=== PATIENT | female | born 1945 | race Caucasian/White ===

== ENCOUNTER 2016-09-24 13:43 | Emergency (ER) | payer MEDICARE, BC ==
[~2016-09-24] VITALS: Ht 160 cm; Wt 75.7 kg
[2016-09-24] MEDS ORDERED: ONDANSETRON PF 4 MG/2 ML VIAL. IV ONE (14:15)
[2016-09-24] MEDS ORDERED: IV NORMAL SALINE 500ML BAG 500 ML IV ONE ×2 (14:15→15:00)
[2016-09-24 14:25] LABS: BASO % 1 % (0-3); EOS % 0 % (0-3); HEMATOCRIT 41.8 % (36.0-47.0); LYMPH # 1.2 x10^3/uL (1.0-4.8); LYMPH % 32 % (24-48); MEAN CORPUSCULAR HEMOGLOBIN 29 pg (25-35); MEAN CORPUSCULAR HGB CONC 33 g/dL (31-37); MEAN CORPUSCULAR VOLUME 85 fL (79-100); MONO % 23 % (0-9); NEUT % 43 % (31-73); PLATELET COUNT 251 x10^3/uL (140-400); RED CELL DISTRIBUTION WIDTH 15.1 % (11.5-14.5); WHITE BLOOD COUNT 3.6 x10^3/uL (4.0-11.0)
[2016-09-24 14:34] LABS: CALCIUM 8.8 mg/dL (8.5-10.1); CREATININE 1.2 mg/dL (0.6-1.0); GFR 44.4; POTASSIUM 3.5 mmol/L (3.5-5.1)
[2016-09-24 15:26] LABS: OBC FLU VALID
[2016-09-24 15:41] LABS: BILIRUBIN,URINE SMALL (NEG); GLUCOSE,URINE NEGATIVE (NEG); NITRITE,URINE NEGATIVE (NEG); PROTEIN,URINE 30 mg/dL (NEG-TRACE); UROBILINOGEN,URINE 0.2 mg/dL (0.2 mg/dL)
[2016-09-24 16:12] LABS: RBC,URINE RARE /HPF (0-2)
[2016-09-24 16:14] LABS: BACTERIA,URINE FEW /HPF (0-FEW)
[2016-09-24 16:15] LABS: SQUAMOUS EPITHELIAL CELL,UR OCC /LPF
[2016-09-24] MEDS ORDERED: ONDA4TAB7 PO (16:26)
--- NOTE | 2016-09-24 16:26 | PHYS DOC ---
Past Medical History Past Medical History: Hypertension Past Surgical History: Cholecystectomy, Hysterectomy Additional Past Surgical Histo: Bladder Sling Alcohol Use: None Drug Use: None Adult General Chief Complaint Chief Complaint: NAUSEA/VOMITING/DIARRHA HPI HPI This 71-year-old female who states she's been having significant nausea and vomiting for the last several days. She states her symptoms were preceded by sinus type congestion several days ago and states she was prescribed a course of Augmentin and a decongestant and then her nausea vomiting develops several days later. She states she has not been able to eat or drink really today. States she has history of hypertension but denies any other significant health history. She does also report subjective body aches and no other symptoms. She denies any chest pain or shortness of breath. Review of Systems Review of Systems Constitutional: Denies fever or chills [] Eyes: Denies change in visual acuity, redness, or eye pain [] HENT: Denies nasal congestion or sore throat [] Respiratory: Denies cough or shortness of breath [] Cardiovascular: No additional information not addressed in HPI [] GI: Denies abdominal pain, has nausea, has vomiting, bloody stools or diarrhea [ ] : Denies dysuria or hematuria [] Musculoskeletal: Denies back pain or joint pain [] Integument: Denies rash or skin lesions [] Neurologic: Denies headache, focal weakness or sensory changes [] Endocrine: Denies polyuria or polydipsia [] Current Medications Current Medications Current Medications Medications (Trade) Dose Ordered Sig/Richelle Start Time Stop Time Status Last Admin Dose Admin Ondansetron HCl 4 mg 4 mg 1X ONCE 09/24/16 14:15 09/24/16 14:25 DC 09/24/16 14:29 4 MG Sodium Chloride (Iv Sodium Chloride 0.9% 500ml Bag) 500 ml @ 500 mls/hr 1X ONCE 09/24/16 15:00 09/24/16 15:59 DC 09/24/16 14:57 500 MLS/HR Allergies Allergies Allergies Coded Allergies Type Severity Reaction Last Updated Verified codeine Allergy Intermediate 09/24/16 Yes Physical Exam Physical Exam Constitutional: Well developed, well nourished, no acute distress, non-toxic appearance. [] HENT: Normocephalic, atraumatic, bilateral external ears normal, oropharynx moist, no oral exudates, nose normal. [] Eyes: PERRLA, EOMI, conjunctiva normal, no discharge. [] Neck: Normal range of motion, no tenderness, supple, no stridor. [] Cardiovascular:Heart rate regular rhythm, no murmur [] Lungs & Thorax: Bilateral breath sounds clear to auscultation [] Abdomen: Bowel sounds normal, soft, no tenderness, no masses, no pulsatile masses. [] Skin: Warm, dry, no erythema, no rash. [] Back: No tenderness, no CVA tenderness. [] Extremities: No tenderness, no cyanosis, no clubbing, ROM intact, no edema. [] Neurologic: Alert and oriented X 3, normal motor function, normal sensory function, no focal deficits noted. [] Psychologic: Affect normal, judgement normal, mood normal. [] Current Patient Data Vital Signs Vital Signs Date Time Temp Pulse Resp B/P Pulse Ox O2 Delivery O2 Flow Rate FiO2 09/24/16 16:41 50 10 116/58 95 Room Air 09/24/16 14:00 98.1 98.1 Lab Values Laboratory Tests Test 09/24/16 14:10 09/24/16 14:50 09/24/16 15:25 White Blood Count 3.6x10^3/uL (4.0-11.0) L Red Blood Count 4.90x10^6/uL (3.50-5.40) Hemoglobin 14.0g/dL (12.0-15.5) Hematocrit 41.8% (36.0-47.0) Mean Corpuscular Volume 85fL (79-100) Mean Corpuscular Hemoglobin 29pg (25-35) Mean Corpuscular Hemoglobin Concent 33g/dL (31-37) Red Cell Distribution Width 15.1% (11.5-14.5) H Platelet Count 251x10^3/uL (140-400) Neutrophils (%) (Auto) 43% (31-73) Lymphocytes (%) (Auto) 32% (24-48) Monocytes (%) (Auto) 23% (0-9) H Eosinophils (%) (Auto) 0% (0-3) Basophils (%) (Auto) 1% (0-3) Neutrophils # (Auto) 1.6x10^3uL (1.8-7.7) L Lymphocytes # (Auto) 1.2x10^3/uL (1.0-4.8) Monocytes # (Auto) 0.8x10^3/uL (0.0-1.1) Eosinophils # (Auto) 0.0x10^3/uL (0.0-0.7) Basophils # (Auto) 0.0x10^3/uL (0.0-0.2) Sodium Level 140mmol/L (136-145) Potassium Level 3.5mmol/L (3.5-5.1) Chloride Level 103mmol/L (98-107) Carbon Dioxide Level 25mmol/L (21-32) Anion Gap 12 (6-14) Blood Urea Nitrogen 18mg/dL (7-20) Creatinine 1.2mg/dL (0.6-1.0) H Estimated GFR (Cockcroft-Gault) 44.4 Glucose Level 108mg/dL (70-99) H Calcium Level 8.8mg/dL (8.5-10.1) Influenza Type A Antigen Negative (NEGATIVE) Influenza Type B Antigen Positive (NEGATIVE) Urine Collection Type Unknown Urine Color [place] Urine Clarity Cloudy Urine pH 5.0 Urine Specific [place] >=1.030 Urine Protein 30mg/dL (NEG-TRACE) Urine Glucose (UA) Negativemg/dL (NEG) Urine Ketones (Stick) Tracemg/dL (NEG) Urine Blood Moderate (NEG) Urine Nitrite Negative (NEG) Urine Bilirubin Small (NEG) Urine Urobilinogen Dipstick 0.2mg/dL (0.2 mg/dL) Urine Leukocyte Esterase Moderate (NEG) Urine RBC Rare/HPF (0-2) Urine WBC 1-4/HPF (0-4) Urine Squamous Epithelial Cells Occ/LPF Urine Amorphous Sediment Present/HPF Urine Bacteria Few/HPF (0-FEW) Urine Hyaline Casts Moderate/HPF Urine Mucus Slight/LPF Laboratory Tests 09/24/16 14:10 Laboratory Tests 09/24/16 14:10 EKG EKG [] Radiology/Procedures Radiology/Procedures [] Course & Med Decision Making Course & Med Decision Making Pertinent Labs and Imaging studies reviewed. (See chart for details) 71-year-old female was given a liter of fluid and Zofran and had laboratory workup that was unrevealing. Her influenza swabs were positive for influenza type B but she is out of the window to treat. I will be providing her a prescription for Zofran and instructing her to take Motrin for her body aches and to continue drink plenty of fluids at home and follow closely with her primary care doctor. I gave her strict instruction to return if she is unable to keep fluids down or if she feels extremely weak or lightheaded. She was successfully ambulated around the department without difficulty and felt comfortable going home after a liter of fluid. She tolerated oral fluids prior to discharge. I counseled her to discontinue her antibiotic use at this time as this could be a contributing factor to her nausea and vomiting. Dragon Disclaimer Dragon Disclaimer This electronic medical record was generated, in whole or in part, using a voice recognition dictation system. Departure Departure Impression: Primary Impression: Influenza B Additional Impression: Nausea & vomiting Disposition: 01 HOME, SELF-CARE Admitting Physician: Other Condition: STABLE Referrals: GABBY WELCH MD (PCP) Patient Instructions: Influenza, Adult Additional Instructions: Please take your medication as prescribed. Take your zofran as needed for any nausea. Continue to stay well hydrated. Return to the ER if you develop any worsening of your symptoms. Scripts Ondansetron Hcl (Zofran)4 Mg Tablet4 Mg PO BID PRN NAUSEA/VOMITING #10 TAB Prov:VALERIE PERKINS DO 09/24/16 Problem Qualifiers VALERIE PERKINS DO Sep 24, 2016 16:26
[2016-09-24 16:41] VITALS: BP 116/58
== END 2016-09-24 16:44 | disposition home or self-care (01) ==
LOC: ER 13:43
DX: J10.1 Influenza due to other identified influenza virus with other respiratory manifestations (principal); R11.2 Nausea with vomiting, unspecified; I10 Essential (primary) hypertension; Z88.5 Allergy status to narcotic agent
CPT/HCPCS: 36415; 80048; 81001; 85027; 87804; 96361; 96374; 99285; J2405; J7040

== ENCOUNTER → 2017-05-06 | Outpatient (CLI) | payer MEDICARE, BC ==
[~2017-05-06] MED LIST: ONDA4TAB7 PO
--- NOTE | 2017-05-06 10:53 | KCIC ---
DATE: 05/06/2017 EXAM: MAMMO KADI SCREENING BILATERAL HISTORY: Screening COMPARISON: One year earlier This study was interpreted with the benefit of Computerized Aided Detection (CAD). FINDINGS: Breast Density: SCATTERED The breast parenchyma shows scattered fibroglandular densities. Breast parenchyma level B. There has not been a significant change compared to the previous exam IMPRESSION: Benign findings BI-RADS CATEGORY: 2 BENIGN FINDING(S) RECOMMENDED FOLLOW-UP: 12M 12 MONTH FOLLOW-UP PQRS compliance statement: Patient information was entered into a reminder system with a target due date 05/06/2018 for the next mammogram. Mammography is a sensitive method for finding small breast cancers, but it does not detect them all and is not a substitute for careful clinical examination. A negative mammogram does not negate a clinically suspicious finding and should not result in delay in biopsying a clinically suspicious abnormality. "Our facility is accredited by the [employer] Mammography Program."
== END | disposition home or self-care (01) ==
LOC: KCIC MAMMO 08:43
PROVIDERS: ATTEND Internal Medicine
DX: Z12.31 Encounter for screening mammogram for malignant neoplasm of breast (principal)
CPT/HCPCS: 77063; G0202; 77067

== ENCOUNTER → 2018-05-08 | Outpatient (CLI) | payer MEDICARE, BC ==
--- NOTE | 2018-05-09 13:05 | KCIC ---
3d digital tomography Bilateral History: Routine screening Technique: Bilateral 3d digital tomographic views were obtained with [employer] and reviewed on a [employer]er workstation. In addition, CAD - computer aided detection was utilized. Comparison: May 05, 2016. Findings: Breast Tissue Density B : The breast tissue is composed of mixed fatty and fibroglandular tissue. There are no suspicious masses, microcalcifications or areas of architectural distortion. Impression: No suspicious findings. BI-RADS Category 1: Negative. Normal interval followup. The patient will receive a letter with the results in the mail. A mammogram does not have 100% sensitivity and therefore a negative imaging study should not delay further work up of a suspicious abnormality. Patient information is entered into the [facility] reminder system using [employer] with a target due date for the next screening mammogram. The patient will receive a reminder. "Our facility is accredited by the [employer] Mammography Program." Electronically signed by: Jeremy Barry III, MD (05/09/2018 1:02 PM) [email or web address]
== END | disposition home or self-care (01) ==
LOC: KCIC MAMMO 09:45
PROVIDERS: ATTEND Internal Medicine
DX: Z12.31 Encounter for screening mammogram for malignant neoplasm of breast (principal)
CPT/HCPCS: 77063; 77067

== ENCOUNTER → 2019-01-01 | Outpatient (CLI) | payer MEDICARE, BC ==
--- NOTE | 2019-01-01 17:24 | KCIC ---
RENAL COMPLETE BILATERAL History: Chronic kidney disease stage III Comparison: None. Findings: Multiple sonographic images of the kidneys and retroperitoneal structures are submitted. Right kidney measured 10.1 x 5 x 4.5 cm. Left kidney measured 10 x 3.8 x 4.1 cm. There is no hydronephrosis of either kidney. Ureteral jets are seen bilaterally in the urinary bladder lumen. There is somewhat lobulated contour of the kidneys bilaterally. Urinary bladder morphology is within normal limits. There is segmental visualization of the inferior vena cava. Abdominal aortic caliber is within normal limits up to 2.6 cm. There is a somewhat exophytic focus of echogenicity arising from the inferior left kidney estimated about 3.1 cm, internal echoes present. Impression: 1. There is no hydronephrosis of either kidney. There is somewhat exophytic focus of echogenicity of the inferior left kidney which does not have features of a simple cyst. CT imaging if able to perform is recommended to evaluate for mass. Electronically signed by: Boyd Tamez MD (01/01/2019 5:22 PM) [id number]
== END | disposition home or self-care (01) ==
LOC: KCIC US 14:26
PROVIDERS: ATTEND Nurse Practitioner
DX: I12.9 Hypertensive chronic kidney disease with stage 1 through stage 4 chronic kidney disease, or unspecified chronic kidney disease (principal); N18.3 Chronic kidney disease, stage 3 (moderate)
CPT/HCPCS: 76770

== ENCOUNTER → 2019-01-05 | Outpatient (CLI) | payer MEDICARE, BC ==
--- NOTE | 2019-01-05 13:44 | KCIC ---
Examination: CT ABDOMEN WO CONTRAST History: Left renal lesion on recent ultrasound exam Comparison/Correlation: 01/01/2019 renal ultrasound exam Findings: Axial images of the abdomen were obtained without contrast. Sagittal and coronal reformatted images were provided. Visualized lung bases are clear. Small hiatal hernia noted. Liver, spleen, pancreas, and adrenal glands are normal. No radiopaque right or left renal calculi. Left renal lower pole parapelvic cyst. No hydronephrosis or proximal hydroureter. Diverticulosis of the colon is partially seen. Anterolisthesis of L4 relation L5 by grade 1 extent noted. Moderate disc space narrowing. Facet joint degenerative changes are notable at this level. Mild to moderate L5/S1 disc space narrowing present. Impression: Left lower pole parapelvic cyst is identified. No suspicious renal finding on this noncontrast CT exam. If mass lesion is a persistent concern, follow-up CT of the kidneys with contrast would be advised. Anterolisthesis of L4 over L5. PQRS Compliance Statement: One or more of the following individualized dose reduction techniques were utilized for this examination: 1. Automated exposure control 2. Adjustment of the mA and/or kV according to patient size 3. Use of iterative reconstruction technique Electronically signed by: Reese Alberto MD (01/05/2019 1:41 PM) [id number]
== END | disposition home or self-care (01) ==
LOC: KCIC CT 11:20
PROVIDERS: ATTEND Nurse Practitioner
DX: K44.9 Diaphragmatic hernia without obstruction or gangrene (principal); N94.89 Other specified conditions associated with female genital organs and menstrual cycle; K57.30 Diverticulosis of large intestine without perforation or abscess without bleeding; M48.07 Spinal stenosis, lumbosacral region
CPT/HCPCS: 74150

== ENCOUNTER → 2019-05-10 | Outpatient (CLI) | payer MEDICARE, BC ==
--- NOTE | 2019-05-11 08:57 | KCIC ---
Bilateral digital screening mammograms with 3-D tomosynthesis: Reason for examination: Routine screening. Comparison is made to previous studies dated back to 05/05/2016. Bilateral mammograms in CC and oblique projections were obtained with 2-D imaging and 3-D tomosynthesis imaging on a Siemens Inspiration unit and reviewed on the workstation. Interpretation was made with the benefit of CAD. The skin and nipples show no abnormalities. No abnormal axillary lymph nodes are seen. The breast parenchyma shows scattered fatty and fibroglandular density. (Breast density: Category B.) There continue to be nodular densities bilaterally which are stable. There are small nodules consistent with intramammary lymph nodes in the upper outer quadrant of the left breast. There are no new dominant masses, suspicious calcifications or architectural distortion. Benign calcifications are present. Impression: No evidence of malignancy. Recommend routine screening. BI-RAD Category 2: Benign. "Our facility is accredited by the [employer] Mammography Program." This patient's information has been entered into a reminder system for the patient to be notified with the results of her examination and a target date for the next mammogram. Electronically signed by: Gris Reynaga MD (05/11/2019 8:54 AM) [id number]
== END | disposition home or self-care (01) ==
LOC: KCIC MAMMO 11:10
PROVIDERS: ATTEND Internal Medicine
DX: Z12.31 Encounter for screening mammogram for malignant neoplasm of breast (principal); N64.89 Other specified disorders of breast; N63.21 Unspecified lump in the left breast, upper outer quadrant
CPT/HCPCS: 77063; 77067

== ENCOUNTER → 2020-05-27 | Outpatient (CLI) | payer MEDICARE, BC ==
--- NOTE | 2020-05-27 09:57 | KCIC ---
Bilateral digital screening mammograms with 3-D tomosynthesis: Reason for examination: Routine screening. Comparison is made to previous studies dated back to 04/01/2015. Bilateral mammograms in CC and oblique projections were obtained with 2-D imaging and 3-D tomosynthesis imaging on a Siemens Inspiration unit and reviewed on the workstation. Interpretation was made with the benefit of CAD. The skin and nipples show no abnormalities. No abnormal axillary lymph nodes are seen. The breast parenchyma shows scattered fatty and fibroglandular density. (Breast density: Category B.) There continues to be some asymmetric parenchyma in the upper outer quadrant of the right breast which is unchanged. There are intramammary lymph nodes present on the left. There are no new dominant masses, suspicious calcifications or architectural distortion. Benign calcifications are present. Biopsy clip remains present with left. Impression: No evidence of malignancy. Recommend routine screening. BI-RAD Category 2: Benign. "Our facility is accredited by the [employer] Mammography [employer]." This patient's information has been entered into a reminder system for the patient to be notified with the results of her examination and a target date for the next mammogram. Electronically signed by: Gris Reynaga MD (05/27/2020 9:54 AM) [id number]
--- NOTE | 2020-05-27 13:59 | KCIC ---
EXAM: Dual energy x-ray absorptiometry (DEXA). HISTORY: Osteoporosis. COMPARISON: None available. TECHNIQUE: Dual energy x-ray absorptiometry of the lumbar spine and left hip was performed. Calculation of bone mineral density based on standard deviations above or below the expected young adult normal value (T-score) was completed. FINDINGS: The average bone mineral density in the 1st through 4th lumbar vertebrae is 1.027 g/cmxcm, corresponding with a T-score of -0.2. The average total bone mineral density in the left hip is 0.768 g/cmxcm, corresponding with a T-score of -1.4. IMPRESSION: Findings are within the range of normal bone density with relation to the spine and osteopenia with relation to the left hip. Note: Definitions established by the World Health Organization: 1. Normal: T-score is -1.0 or above. 2. Osteopenia: T-score is between -1.0 and -2.5 . 3. Osteoporosis: T-score is -2.5 or below. Electronically signed by: Cari Kothari MD (05/27/2020 1:56 PM) [facility]
== END ==
LOC: KCIC DEXA 08:39
PROVIDERS: ATTEND Internal Medicine
DX: Z12.31 Encounter for screening mammogram for malignant neoplasm of breast (principal); N64.89 Other specified disorders of breast; Z78.0 Asymptomatic menopausal state
CPT/HCPCS: 77063; 77067; 77080

== ENCOUNTER → 2021-04-09 | Outpatient (CLI) | payer MEDICARE, BC ==
--- NOTE | 2021-04-09 11:07 | KCIC ---
Right upper quadrant ultrasound. Indication: Intermittent right upper quadrant pain. COMPARISON STUDY: CT of the abdomen and pelvis January 05, 2019 FINDINGS: Pancreas is somewhat poorly visualized but grossly unremarkable in appearance. The liver is normal in size measuring 14 cm longitudinally. Portions of the liver obscured by overlying structure s. No focal hepatic lesions are identified. The common bile duct is nondilated measuring 3 mm in diam eter. The right kidney is unremarkable in appearance measuring 10.1 cm in length. The gallbladder dem onstrates no evidence of wall thickening, stones, or sludge. Visualized aorta and IVC are unremarkabl e. IMPRESSION: Somewhat limited exam without evidence of acute intra-abdominal abnormality. Electronically signed by: Edmond Albright MD (04/09/2021 11:04 AM) [id number]
== END ==
LOC: KCIC US 09:35
PROVIDERS: ATTEND Internal Medicine
DX: R10.11 Right upper quadrant pain (principal)
CPT/HCPCS: 76705

== ENCOUNTER → 2021-06-18 | Outpatient (CLI) | payer MEDICARE, BC ==
--- NOTE | 2021-06-18 11:42 | KCIC ---
Bilateral digital screening mammograms with 3-D tomosynthesis: Reason for examination: Routine screening. Comparison is made to previous studies dated back to 04/01/2015. Bilateral mammograms in CC and oblique projections were obtained with 2-D imaging and 3-D tomosynthes is imaging on a Siemens Inspiration unit and reviewed on the workstation. Interpretation was made wit h the benefit of CAD. The skin and nipples show no abnormalities. No abnormal axillary lymph nodes are seen. The breast par enchyma shows scattered fatty and fibroglandular density. (Breast density: Category B.) There are sma ll nodular parenchymal densities again seen bilaterally which are stable. There are benign calcificat ions present. There are no new dominant masses, suspicious calcifications or architectural distortion . Biopsy clip remains present on the left. Impression: No evidence of malignancy. Recommend routine screening. BI-RAD Category 2: Benign. "Our facility is accredited by the [employer] Mammography Program." This patient's information has been entered into a reminder system for the patient to be notified wit h the results of her examination and a target date for the next mammogram. Electronically signed by: Gris Reynaga MD (06/18/2021 11:40 AM) [id number]
== END ==
LOC: KCIC MAMMO 10:40
PROVIDERS: ATTEND Internal Medicine
DX: Z12.31 Encounter for screening mammogram for malignant neoplasm of breast (principal)
CPT/HCPCS: 77063; 77067

== ENCOUNTER → 2021-06-29 | Outpatient (CLI) | payer MEDICARE, BC ==
[~2021-06-29] VITALS: Ht 165.1 cm; Wt 74.8 kg
[~2021-06-29] MED LIST changes: +AMLO-186 PO; +ENAL20TA10 PO; +METHENAMINE HIPP1 GM PO; +ROSU5TAB12 PO; +SINCALIDE 1.5 MCG in IV NORMAL SALINE 50ML 30 ML IV ONE; +TRIA1TAB3 PO; +[UNRECOGNIZED DRUG - OTHER]
--- NOTE | 2021-06-29 17:32 | RAD ---
NM HEPATOBILIARY SCAN W/PHARM History:Reason: / Spl. Instructions: / History: Pain Comparison: Ultrasound April 09, 2021 Technique: 5.5 mCi technetium 99m Choletec was administered intravenously and spot views were obtain ed on the gamma camera for a Nuclear Medicine hepatobiliary scan. 1.5 mcg of CCK drip was administered over 30 minutes and the region of interest was drawn around the gallbladder and gallbladder ejection fraction was calculated. Findings: There is rapid uptake of activity from the blood pool and concentration in the liver. Activity seen i n the gallbladder at 20 minutes and small bowel at 15 minutes. Gallbladder ejection fraction is 84%. Impression: 1. Normal hepatobiliary scan. Normal gallbladder ejection fraction. Electronically signed by: John Morris DO (06/29/2021 5:29 PM) [id number]
== END ==
LOC: NM 09:56
PROVIDERS: ATTEND Internal Medicine Gastroenterology
DX: R10.13 Epigastric pain (principal); R11.0 Nausea
CPT/HCPCS: 78227; A9537; J2805

== ENCOUNTER → 2021-09-03 | Outpatient (CLI) | payer MEDICARE, BC ==
[~2021-09-03] MED LIST changes: -SINCALIDE 1.5 MCG in IV NORMAL SALINE 50ML 30 ML IV ONE
--- NOTE | 2021-09-03 12:44 | RAD ---
EXAM: Nuclear gastric emptying scan. HISTORY: Pain and nausea. COMPARISON: None. TECHNIQUE: Serial static images were obtained over the stomach following oral administration of 2 mCi 99m-Tc sulfur colloid. FINDINGS: The stomach empties into the small bowel without evidence of reflux in the area of the esop hagus. Gastric retention percents: 1 hour 45% (normal range 34.8-91%) 2 hour 25% (normal range 2.7-60%) 3 hour 16% (normal range 0.5-28%) 4 hour 10% (normal range 0-10%) The estimated time for half emptying of gastric contents, i.e. 'gastric emptying time' is 55 minutes (normal is 66 +/- 22 minutes). IMPRESSION: Upper normal gastric retention at 4 hours. There is a normal gastric emptying half-time a nd there is normal gastric retention at 1 hour, 2 hours and 3 hours. Electronically signed by: Jessica Hernandez MD (09/03/2021 12:42 PM) [id number]
== END ==
LOC: NM 07:57
PROVIDERS: ATTEND Internal Medicine Gastroenterology
DX: R11.0 Nausea (principal); R10.9 Unspecified abdominal pain
CPT/HCPCS: 78264; A9541